=== PATIENT | male | born 1935 | race Two or more races ===

== ENCOUNTER → 2016-09-16 | Day surgery (SDC) | payer OTHER ==
[~2016-09-16] MED LIST: LISINOPRIL20 MG PO; MAPAP325 M1 PO; OMEPRAZOLE20 M1 PO
--- NOTE | ~2016-09-16 | OR ---
Unit #: [id number] #: [id number] Patient: KALIN PLATA [id number] [address] [address] [id number] MR#: [id number] NAME: KALIN PLATA ROOM: Date of Procedure: 09/16/2016 Admission Date: 09/16/2016 Surgeon: Noah Garcia M.D. : 1935 Attending Physician: Noah Garcia M.D. OPERATIVE REPORT PROCEDURE PERFORMED Esophagogastroduodenoscopy with biopsy. INDICATIONS FOR PROCEDURE The patient with persistent epigastric pain, discomfort, dyspepsia, as well as GERD symptoms, undergoing evaluation with upper endoscopy. MEDICATIONS Monitored anesthesia. POSTOPERATIVE FINDINGS 1. Mild gastritis. Biopsies taken. 2. Mild esophagitis and small hiatal hernia. 3. Normal duodenum and distal duodenum. PLAN PPI therapy. Avoid NSAIDs. DESCRIPTION OF PROCEDURE The patient was explained of the procedure, risks, and benefits along with the risks and benefits of anesthesia. He was brought to the endoscopy room. Propofol anesthesia was given. Bite block was placed. The scope was passed down the mouth and esophagus, stomach, duodenum, and distal duodenum. Findings as described. Biopsies taken. Gently, I pulled the scope out of the patient's mouth. He tolerated it well. Dictated by... Parvin Stroud/servando TD: 09/17/2016 05:20 JOB #: [id number] Unit #: [id number] #: [id number] Patient: KALIN PLATA OPERATIVE REPORT Page 1 of 1 X Noah Garcia MD X PROCEDURE OPERATIVE NOTE
== END | disposition home or self-care (01) ==
LOC: COPS 07:53
DX: K29.50 Unspecified chronic gastritis without bleeding (principal); K31.89 Other diseases of stomach and duodenum; K20.9 Esophagitis, unspecified; K44.9 Diaphragmatic hernia without obstruction or gangrene; E11.9 Type 2 diabetes mellitus without complications; I10 Essential (primary) hypertension; K21.9 Gastro-esophageal reflux disease without esophagitis; Z88.8 Allergy status to other drugs, medicaments and biological substances; Z79.899 Other long term (current) drug therapy
CPT/HCPCS: 82947; 88305; 88312